=== PATIENT | female | born 1945 | race Two or more races ===

== ENCOUNTER 2022-08-20 10:30 | Emergency (ER) | payer MEDICARE, MEDICAID ==
[~2022-08-20] VITALS: Ht 162.6 cm; Wt 96.0 kg
[2022-08-20 10:31] VITALS: BP 182/64
[2022-08-20] MEDS ORDERED: ACETAMINOPHEN 325MG TABLET PO ONE (12:00)
[2022-08-20] MEDS ORDERED: TOPUD PO (12:29)
== END 2022-08-20 12:42 | disposition home or self-care (01) ==
LOC: ER 10:30
DX: R68.83 Chills (without fever) (principal); I10 Essential (primary) hypertension; Z20.822 Contact with and (suspected) exposure to COVID-19; Z98.890 Other specified postprocedural states; Z23 Encounter for immunization
CPT/HCPCS: 87426; 87804; 99283; C9803